=== PATIENT | female | born 1955 | race African-American/Black ===

== ENCOUNTER 2023-07-16 16:44 | Emergency (ER) | payer OTHER, SELFPAY ==
[2023-07-16 16:52] VITALS: BP 169/80; PULSE 99; RESP 20; TEMP 37.8; O2SAT 96; BMI 31.0
--- NOTE | 2023-07-16 17:03 | ED_ITS ---
HPI - Abdominal Pain General Chief Complaint: Abdominal Pain Stated Complaint: abdominal pain Time Seen by Provider: 07/16/23 16:53 Source: patient Mode of arrival: walk-in Limitations: no limitations History of Present Illness HPI narrative: 67 year old female presents to the ED for low abd pain. Onset was 1-2 days ago. Denies fever, chills, injury, N/V/D, urinary sx. Denies previous abd surgery. Rates her pain 6/10 at this time. She presented to the ED febrile. Related Data Home Medications Medication Instructions Recorded Confirmed acarbose 25 mg tablet 25 mg PO TID 07/16/23 07/16/23 albuterol sulfate 2.5 mg/3 mL 2.5 mg inhalation Q4H PRN 07/16/23 07/16/23 (0.083 %) solution for nebulization shortness of breath or wheezing albuterol sulfate 90 mcg/actuation 1 inh inhalation Q4H PRN shortness 07/16/23 07/16/23 aerosol inhaler of breath or wheezing aspirin 81 mg tablet,delayed 81 mg PO DAILY 07/16/23 07/16/23 release (Adult Aspirin Regimen) atorvastatin 40 mg tablet 40 mg PO DAILY 07/16/23 07/16/23 carvedilol 12.5 mg tablet 12.5 mg PO TID 07/16/23 07/16/23 losartan 100 1 tab PO DAILY 07/16/23 07/16/23 mg-hydrochlorothiazide 25 mg tablet montelukast 10 mg tablet 10 mg PO DAILY 07/16/23 07/16/23 multivitamin 1 tab PO DAILY 07/16/23 07/16/23 pantoprazole 40 mg tablet,delayed 40 mg PO DAILY 07/16/23 07/16/23 release potassium 75 mg tablet 75 mg PO DAILY 07/16/23 07/16/23 prednisone 10 mg tablet 10 mg PO DAILY 07/16/23 07/16/23 pregabalin 50 mg capsule 50 mg PO DAILY 07/16/23 07/16/23 raloxifene 60 mg tablet 60 mg PO DAILY 07/16/23 07/16/23 Previous Rx's Medication Instructions Recorded ciprofloxacin HCl 500 mg tablet 500 mg PO Q12H 10 days #20 tabs 07/16/23 (Cipro) metronidazole 500 mg tablet 500 mg PO Q8H 10 days #30 tabs 07/16/23 Allergies Allergy/AdvReac Type Severity Reaction Status Date / Time meclizine [From Antivert] Allergy Hives Verified 07/16/23 16:50 Review of Systems ROS Constitutional Reports: fever; Denies: chills Ears, nose, mouth, and throat Denies: throat pain or neck pain Cardiovascular Denies: chest pain Respiratory Denies: shortness of breath or cough Gastrointestinal Reports: abdominal pain; Denies: nausea, vomiting, diarrhea or constipation Genitourinary Denies: painful urination, urinary frequency, urinary urgency or blood in urine Musculoskeletal Denies: back pain or neck pain Integumentary/Breast Denies: rash Neurological Denies: headache Exam Constitutional Vital Signs, click to edit/add: Last Vital Signs Temp 100.0 F 07/16/23 16:52 Pulse 99 H 07/16/23 16:52 Resp 20 07/16/23 16:52 BP 169/80 H 07/16/23 16:52 Pulse Ox 96 07/16/23 16:52 O2 Del Method Room Air 07/16/23 16:52 Common normals: no apparent distress and oriented x3 General appearance: cooperative HENMT Mouth: oral and palatal mucosa normal, lip normal and tongue normal Eye Common normals: conjunctivae normal and no scleral icterus Neck & C-Spine Common normals: supple Chest Chest: symmetrical chest wall rise Respiratory Common normals: normal respiratory effort Effort & inspection: able to speak in complete sentences and symmetric chest movement Cardio Common normals: regular rate and regular rhythm GI Common normals: Normal to inspection, nondistended, normoactive bowel sounds present and soft to palpation Palpation: tender Details: RLQ and LUQ Neuro Common normals: oriented x3 Sensorium/orientation: awake and alert Speech: speech normal Course Vital Signs Vital signs: Vital Signs Temperature 100.0 F 07/16/23 16:52 Pulse Rate 99 H 07/16/23 16:52 Respiratory Rate 20 07/16/23 16:52 Blood Pressure 169/80 H 07/16/23 16:52 Pulse Oximetry 96 07/16/23 16:52 Oxygen Delivery Method Room Air 07/16/23 16:52 Temperature 100.0 F 07/16/23 16:52 Pulse Rate 99 H 07/16/23 16:52 Respiratory Rate 20 07/16/23 16:52 Blood Pressure 169/80 H 07/16/23 16:52 Pulse Oximetry 96 07/16/23 16:52 Oxygen Delivery Method Room Air 07/16/23 16:52 MDM - Abdominal Pain MDM Narrative Medical decision making narrative: WBC count was 10.2. She presented to the ED with a temperature of 100.0. CT scan showed: 1. Moderate acute uncomplicated sigmoid diverticulitis. 2. Bilateral nonobstructing kidney stones. 3. Benign right adrenal adenoma. If not already performed recommend biochemical analysis to evaluate for a functioning adenoma. Findings were discussed with the patient. She was started on IV antibiotics here in the ED. She will be discharged home at the recommendation of the ED physician. Prescriptions were provided for Cipro and Flagyl. Follow up with pcp for a recheck, further evaluation and treatment. Return precautions were discussed. Differential Diagnosis Differential diagnosis: Likely abdominal pain, acute appendicitis, diverticulitis and small bowel obstruction Medical Records Attestation: I reviewed the patient's medical records. Lab Data Attestation: I reviewed the patient's lab results. Labs: Lab Results 07/16/23 07/16/23 Range/Units 17:14 18:30 WBC 10.2 (4.0-11.0) 10^3/uL RBC 4.47 (4.20-5.40) 10^6/uL Hgb 13.2 (12.0-16.0) g/dL Hct 41.2 (36.0-48.0) % MCV 92.2 (81.0-99.0) fL MCH 29.5 (26.7-34.0) pg MCHC 32.0 (29.9-35.2) g/dL RDW 13.6 (11.0-15.0) % Plt Count 300 (150-450) 10^3/uL MPV 10.2 (9.5-13.5) fL Neut % (Auto) 74.6 (43.0-75.0) % Lymph % (Auto) 15.0 L (20.5-60.0) % [place] % (Auto) 9.0 (1.7-12.0) % Eos % (Auto) 0.6 L (0.9-7.0) % Baso % (Auto) 0.6 (0.2-2.0) % Neut # (Auto) 7.6 H (1.4-6.5) 10^3/uL Lymph # (Auto) 1.5 (1.2-3.8) 10^3/uL [place] # (Auto) 0.9 H (0.3-0.8) 10^3/uL Eos # (Auto) 0.1 (0.0-0.7) 10^3/uL Baso # (Auto) 0.1 (0.0-0.1) 10^3/uL Abs Immat Gran (auto) 0.02 (0.00-0.03) 10^3/uL Imm/Tot Granulo (auto) 0.2 (0.0-0.5) % Sodium 140 (136-145) mmol/L Potassium 3.3 L (3.5-5.1) mmol/L Chloride 102 (98-107) mmol/L Carbon Dioxide 28.0 (21.0-32.0) mmol/L Anion Gap 13.3 BUN 9.0 (7.0-18.0) mg/dL Creatinine 0.88 (0.55-1.02) mg/dL Est GFR ( Amer) >60 (>=60) Est GFR (Non-Af Amer) >60 (>=60) BUN/Creatinine Ratio 10.2 Glucose 130 H (74-106) mg/dL Calcium 9.2 (8.5-10.1) mg/dL Total Bilirubin 0.5 (0.2-1.0) mg/dL AST 34 (15-37) U/L ALT 50 (14-59) U/L Alkaline Phosphatase 77 (46-116) U/L Total Protein 6.7 (6.4-8.2) g/dL Albumin 2.9 L (3.4-5.0) g/dL Globulin 3.8 g/dL Albumin/Globulin Ratio 0.8 Lipase 34.0 (16.0-77.0) U/L Urine Color Yellow (YELLOW) Urine Clarity Clear (CLEAR) Urine pH 5.5 (5.0-9.0) Ur Specific [place] 1.010 (1.005-1.025) Urine Protein Negative (NEG/TRACE) mg/dL Urine Glucose (UA) 100 A (NEGATIVE) mg/dL Urine Ketones Trace A (NEGATIVE) mg/dL Urine Occult Blood Negative (NEGATIVE) Urine Nitrite Negative (NEGATIVE) Urine Bilirubin Negative (NEGATIVE) Urine Urobilinogen 0.2 (0.2-1.0) EU/dL Ur Leukocyte Esterase Negative (NEGATIVE) Imaging Data CT scan - abdomen: Attestation: I have reviewed the pertinent imaging results. Radiologist's impression: Procedure: CT abdomen pelvis w con EXAM: CT abdomen pelvis w con; [id number] REASON FOR EXAM: low abd pain TECHNIQUE: Helical CT images of the abdomen and pelvis were obtained after the administration of IV contrast. Multiplanar reformats were generated at the scanner. Dose reduction technique used: Automated exposure control and/or adjustment of the mA and/or kV according to patient size and/or use of iterative reconstruction technique. COMPARISON: Chest CT 09/26/2009. FINDINGS: Visualized Chest: Mild bibasilar atelectasis. Abdomen: Liver: Within normal limits. Gallbladder: No calcified gallstones. No acute inflammatory changes. Bile Ducts: No significant biliary ductal dilatation. Pancreas: No mass, ductal dilatation, or inflammatory changes. Spleen: No splenomegaly or focal lesion. Adrenals: Intermediate attenuation nodule in the right adrenal gland measuring 12 x 14 mm, similar compared with 09/26/2009 and most compatible with a benign adrenal adenoma. No left adrenal nodule. Kidneys: -Cluster of 3 nonobstructing stones in the lower pole of the right kidney as well as additional single nonobstructive stone in the upper pole of the right kidney. The largest stone measures up to 3 mm. -Single nonobstructing 4 mm stone in the left kidney. -Simple appearing right renal cysts with the largest measuring up to 5.5 cm. -No hydronephrosis. Vascular: No aortic aneurysm. Lymph Nodes: No adenopathy. Abdominal Wall: No hernia or mass. Pelvis: No mass or adenopathy. Bowel/Peritoneal Cavity/Mesentery: -Moderate sigmoid diverticulosis with associated moderate pericolonic fat stranding and moderate wall thickening involving a short segment of the sigmoid colon (for example series 3 image 105). No evidence of abscess or gross perforation. There is trace adjacent pelvic free fluid. -No bowel obstruction. -Small hiatal hernia containing less than 5% of the stomach. Musculoskeletal: No acute fracture or suspicious osseous lesion. Degenerative grade 2 anterolisthesis of L4 on L5. CT/CT abdomen pelvis w con IMPRESSION: 1. Moderate acute uncomplicated sigmoid diverticulitis. 2. Bilateral nonobstructing kidney stones. 3. Benign right adrenal adenoma. If not already performed recommend biochemical analysis to evaluate for a functioning adenoma. Electronically authenticated by: JOVI VERA Date: 07/16/2023 18:35 Discharge Plan Discharge Chief Complaint: Abdominal Pain Clinical Impression: Diverticulitis Patient Disposition: Home, Self-Care Time of Disposition Decision: 19:01 Condition: Good Mode of Transportation: Private Vehicle Prescriptions / Home Meds: New ciprofloxacin HCl [Cipro] 500 mg tablet 500 mg PO Q12H 10 Days Qty: 20 0RF metronidazole 500 mg tablet 500 mg PO Q8H 10 Days Qty: 30 0RF No Action acarbose 25 mg tablet 25 mg PO TID albuterol sulfate 2.5 mg /3 mL (0.083 %) solution for nebulization 2.5 mg inhalation Q4H PRN (Reason: shortness of breath or wheezing) albuterol sulfate 90 mcg/actuation HFA aerosol inhaler 1 inh INHALATION Q4H PRN (Reason: shortness of breath or wheezing) atorvastatin 40 mg tablet 40 mg PO DAILY carvedilol 12.5 mg tablet 12.5 mg PO TID losartan-hydrochlorothiazide 100-25 mg tablet 1 tab PO DAILY montelukast 10 mg tablet 10 mg PO DAILY pantoprazole 40 mg tablet,delayed release (DR/EC) 40 mg PO DAILY pregabalin 50 mg capsule 50 mg PO DAILY raloxifene 60 mg tablet 60 mg PO DAILY prednisone 10 mg tablet 10 mg PO DAILY potassium 75 mg tablet 75 mg PO DAILY multivitamin Tablet 1 tab PO DAILY aspirin [Adult Aspirin Regimen] 81 mg tablet,delayed release (DR/EC) 81 mg PO DAILY Instructions: Diverticulitis (ED), Diverticulitis Diet (ED) Stand Alone Forms: Portal Instructions Referrals: Physician,Non-Staff, MD [Physician] - 1 week
[2023-07-16] MEDS: 0.9 % SODIUM CHLORIDE 1,000 ML 100 ML IV (17:15)
[2023-07-16 17:23] LABS: Basophils Absolute Auto 0.1 10^3/uL (0.0-0.1); Basophils Percent Auto 0.6 % (0.2-2.0); Eosinophils Absolute Auto 0.1 10^3/uL (0.0-0.7); Eosinophils Percent Auto 0.6 % (0.9-7.0); Hematocrit 41.2 % (36.0-48.0); Hemoglobin 13.2 g/dL (12.0-16.0); Immature Granulocytes Abs Auto 0.02 10^3/uL (0.00-0.03); Immature Granulocytes Pct Auto 0.2 % (0.0-0.5); Lymphocytes Absolute Auto 1.5 10^3/uL (1.2-3.8); Mean Corpuscular Hemoglobin 29.5 pg (26.7-34.0); Mean Corpuscular Volume 92.2 fL (81.0-99.0); Mean Platelet Volume 10.2 fL (9.5-13.5); Monocytes Absolute Auto 0.9 10^3/uL (0.3-0.8); Neutrophils Absolute Auto 7.6 10^3/uL (1.4-6.5); Neutrophils Percent Auto 74.6 % (43.0-75.0); Platelet Count 300 10^3/uL (150-450); Red Blood Count 4.47 10^6/uL (4.20-5.40); Red Cell Distribution Width 13.6 % (11.0-15.0); White Blood Count 10.2 10^3/uL (4.0-11.0)
[2023-07-16 17:38] LABS: Alanine Aminotransferase 50 U/L (14-59); Albumin Globulin Ratio 0.8; Albumin Level 2.9 g/dL (3.4-5.0); Alkaline Phosphatase 77 U/L (46-116); Anion Gap 13.3; Aspartate Amino Transferase 34 U/L (15-37); BUN Creatinine Ratio 10.2; Bilirubin Total 0.5 mg/dL (0.2-1.0); Calcium 9.2 mg/dL (8.5-10.1); Chloride 102 mmol/L (98-107); Estimated GFR (African America >60 (>=60); Estimated GFR (Non-African Ame >60 (>=60); Globulin 3.8 g/dL; Glucose 130 mg/dL (74-106); Potassium 3.3 mmol/L (3.5-5.1); Sodium 140 mmol/L (136-145); Total Protein 6.7 g/dL (6.4-8.2)
--- NOTE | 2023-07-16 17:43 | CT_ITS ---
[address] [address] Patient Name: ODRETHA YANG MRN: [id number] date: 1955 Sex: F Assigned Patient Location: ER Current Patient Location: ER Accession/Order Number: [id number] Exam Date: 07/16/2023 17:53 Report Date: 07/16/2023 18:35 At the request of: NAKITA VERDUZCO Procedure: CT abdomen pelvis w con EXAM: CT abdomen pelvis w con; [id number] REASON FOR EXAM: low abd pain TECHNIQUE: Helical CT images of the abdomen and pelvis were obtained after the administration of IV contrast. Multiplanar reformats were generated at the scanner. Dose reduction technique used: Automated exposure control and/or adjustment of the mA and/or kV according to patient size and/or use of iterative reconstruction technique. COMPARISON: Chest CT 09/26/2009. FINDINGS: Visualized Chest: Mild bibasilar atelectasis. Abdomen: Liver: Within normal limits. Gallbladder: No calcified gallstones. No acute inflammatory changes. Bile Ducts: No significant biliary ductal dilatation. Pancreas: No mass, ductal dilatation, or inflammatory changes. Spleen: No splenomegaly or focal lesion. Adrenals: Intermediate attenuation nodule in the right adrenal gland measuring 12 x 14 mm, similar compared with 09/26/2009 and most compatible with a benign adrenal adenoma. No left adrenal nodule. Kidneys: -Cluster of 3 nonobstructing stones in the lower pole of the right kidney as well as additional single nonobstructive stone in the upper pole of the right kidney. The largest stone measures up to 3 mm. -Single nonobstructing 4 mm stone in the left kidney. -Simple appearing right renal cysts with the largest measuring up to 5.5 cm. -No hydronephrosis. Vascular: No aortic aneurysm. Lymph Nodes: No adenopathy. Abdominal Wall: No hernia or mass. Pelvis: No mass or adenopathy. Bowel/Peritoneal Cavity/Mesentery: -Moderate sigmoid diverticulosis with associated moderate pericolonic fat stranding and moderate wall thickening involving a short segment of the sigmoid colon (for example series 3 image 105). No evidence of abscess or gross perforation. There is trace adjacent pelvic free fluid. -No bowel obstruction. -Small hiatal hernia containing less than 5% of the stomach. Musculoskeletal: No acute fracture or suspicious osseous lesion. Degenerative grade 2 anterolisthesis of L4 on L5. CT/CT abdomen pelvis w con IMPRESSION: 1. Moderate acute uncomplicated sigmoid diverticulitis. 2. Bilateral nonobstructing kidney stones. 3. Benign right adrenal adenoma. If not already performed recommend biochemical analysis to evaluate for a functioning adenoma. Electronically authenticated by: JOVI VERA Date: 07/16/2023 18:35
[2023-07-16 18:46] LABS: Bilirubin Urine NEGATIVE (NEGATIVE); Blood Urine NEGATIVE (NEGATIVE); Clarity Urine CLEAR (CLEAR); Color Urine YELLOW (YELLOW); Glucose Urine UA 100 mg/dL (NEGATIVE); Ketones Urine TRACE mg/dL (NEGATIVE); Leukocyte Esterase Urine NEGATIVE (NEGATIVE); Nitrite Urine NEGATIVE (NEGATIVE); Protein Urine NEGATIVE (NEG/TRACE); Urobilinogen Urine 0.2 EU/dL (0.2-1.0); pH Urine 5.5 (5.0-9.0)
[2023-07-16 18:47] LABS: Urine Microscopic Indicated NO
[2023-07-16] MEDS: CIPROFLOXACIN IN 5 % DEXTROSE 400 MG/200 ML PIGGYBACK 200 MG IV (19:02)
[2023-07-16] MEDS: ACETAMINOPHEN 500 MG TABLET 1000 MG PO (19:02)
[2023-07-16] MEDS: METRONIDAZOLE/SODIUM CHLORIDE 500 MG/100 ML PREMIX 100 MG IV (20:05)
== END 2023-07-16 21:11 | disposition home or self-care (01) ==
PROVIDERS: Nurse Practitioner Family; Emergency Provider Emergency Medicine; PCP Family Medicine
DX: K57.32 Diverticulitis of large intestine without perforation or abscess without bleeding (principal); Z79.82 Long term (current) use of aspirin; Z79.899 Other long term (current) drug therapy; R50.9 Fever, unspecified; N20.0 Calculus of kidney; D35.01 Benign neoplasm of right adrenal gland
CPT/HCPCS: 36415; 74177; 80053; 81003; 83690; 85025; 96365; 96367; 99285; Q9967